=== PATIENT | male | born 1960 | race Caucasian/White ===

== ENCOUNTER 2024-12-15 23:35 | Emergency (ER) | payer MEDICAID, OTHER ==
[~2024-12-15] VITALS: Ht 172.7 cm; Wt 99.8 kg
[~2024-12-15 23:35] MED LIST: ALBU8.5H8 IH; PRED20TA PO
[2024-12-16] MEDS: IV NORMAL SALINE 1000 ML BAG IV ONE (00:15)
[2024-12-16 00:16] LABS: PLATELET COUNT (AUTO) 187 K/uL (152-348); RED BLOOD CELL COUNT(AUTO) 4.72 MIL/uL (4.06-5.63); RED CELL DISTRIBUTION WIDTH 13.7 % (12.1-16.2); WHITE BLOOD COUNT (AUTO) 6.0 K/uL (3.6-10.2)
[2024-12-16 00:23] LABS: CREATININE 1.1 mg/dL (0.6-1.3); SODIUM SERUM 139.0 mmol/L (136-145); UREA NITROGEN, BLOOD 16.0 mg/dL (7-18)
[2024-12-16 00:28] LABS: ASPARTATE AMINOTRANSFERASE 20.0 U/L (15-37); TOTAL PROTEIN, SERUM 8.4 g/dL (6.4-8.2)
[2024-12-16 01:20] LABS: *BILIRUBIN,URIN NEGATIVE (NEGATIVE); *BLOOD, URINE NEGATIVE (NEGATIVE); *CLARITY,URINE CLEAR (CLEAR); *COLOR,URINE YELLOW (YELLOW); *KETONES,URINE NEGATIVE (NEGATIVE); *PROTEIN,URINE NEGATIVE (NEGATIVE); *UROBILINOGEN,URINE 0.2 E.U./dl (NORMAL); LEUKOCYTE ESTERASE ,URINE NEGATIVE (NEGATIVE); NITRITE, URINE NEGATIVE (NEGATIVE); UGLUCOSE NEGATIVE (NEGATIVE)
[2024-12-16] MEDS: IV NS 1000 ML 1,000 ML IV PRN (01:30)
[2024-12-16] MEDS ORDERED: IOHEXOL 300MG/ML 100 ML INFUS..BTL ONE (01:36)
[2024-12-16] MEDS ORDERED: IV NORMAL SALINE 250 ML IV ONE (01:36)
[2024-12-16] MEDS ORDERED: SWABABLE VALVE TRANSFER SET EA MC ONE (01:36)
[2024-12-16] MEDS ORDERED: WARF-58 PO (02:59)
[2024-12-16] MEDS ORDERED: METO-357 PO (02:59)
[2024-12-16] MEDS ORDERED: FURO40TA5 PO (02:59)
[2024-12-16] MEDS ORDERED: BISO5TAB20 PO (03:04)
[2024-12-16] MEDS ORDERED: HYDR-3980 PO (05:14)
[2024-12-16 05:34] VITALS: BP 131/74; TEMP 98; O2SAT 98
== END 2024-12-16 05:30 | disposition left against medical advice (07) ==
LOC: ER 23:50
DX: K81.0 Acute cholecystitis (principal); R11.10 Vomiting, unspecified; J44.9 Chronic obstructive pulmonary disease, unspecified; F17.200 Nicotine dependence, unspecified, uncomplicated; N40.0 Benign prostatic hyperplasia without lower urinary tract symptoms; Z79.01 Long term (current) use of anticoagulants; Z79.52 Long term (current) use of systemic steroids; Z79.899 Other long term (current) drug therapy; Z95.2 Presence of prosthetic heart valve; Z86.79 Personal history of other diseases of the circulatory system; Z87.09 Personal history of other diseases of the respiratory system; Z88.6 Allergy status to analgesic agent
CPT/HCPCS: 99285; 36415; 93005; 74177; 96360; 96361 ×2; 76705; 80076; 80048; 81003; 83690; 85025; 85610; 87040; Q9967; J7040 ×2; A4606; A4663